=== PATIENT | female | born 1930 | race Caucasian/White ===

== ENCOUNTER 2018-03-25 12:58 | Outpatient (CLI) | payer MEDICARE ==
[2018-03-25 12:52] VITALS: BMI 23.1
[2018-03-25 13:50] LABS: #Lymphocytes 1.7 thou/uL (1.20-3.40); #Monocytes 0.6 thou/uL (0.11-0.59); #Neutrophils 3.8 thou/uL (1.40-6.50); %Basophils 0.2 % (0.0-1.0); %Eosinophils 0.8 % (0.0-10.0); %Lymphocytes 27.3 % (21.0-51.0); %Neutrophils 62.8 % (42.0-75.0); Hemoglobin 13.7 g/dL (12.0-16.0); Mean Corpuscular HGB CONC 33.5 g/dL (32.0-36.0); Mean Corpuscular Hemoglobin 31.2 pg (27.0-31.0); Mean Corpuscular Volume 93.1 fL (78.0-98.0); Mean Platelet Volume 6.7 fL (7.4-10.4); Platelet Count 208 thou/uL (130-400); Red Blood Cell (RBC) Count 4.39 mill/uL (4.20-5.40); White Blood Cell (WBC) Count 6.1 thou/uL (4.8-10.8)
[2018-03-25 14:10] LABS: Anion Gap 9 mmol/L (10-20); BUN (Urea Nitrogen) 17 mg/dL (9.8-20.1); Calc. Creatinine Clearance 54 mL/min (70-130); Calcium 9.5 mg/dL (7.8-10.44); Carbon Dioxide 29 mmol/L (23-31); Chloride 104 mmol/L (98-107); Estimated GFR-MDRD 68; Glucose 89 mg/dL (83-110); Potassium 4.2 mmol/L (3.5-5.1); Sodium 138 mmol/L (136-145)
--- NOTE | 2018-03-25 14:13 | RAD ---
TWO VIEW CHEST: History: Pre-operative evaluation. Comparison: 11-27-13 FINDINGS: The lung lozano are clear of infiltrate. Chronic appearing interstitial changes appear stable. Heart and mediastinum are unremarkable. Osseous structures unremarkable. Two focal sclerotic lesions in the right scapula are stable. IMPRESSION: No acute process or significant interval change. POS: [facility]
--- NOTE | 2018-03-25 17:21 | EKG ---
Test Reason : Blood Pressure : / mmHG Vent. Rate : 065 BPM Atrial Rate : 065 BPM P-R Int : 228 ms QRS Dur : 152 ms QT Int : 424 ms P-R-T Axes : 000 -17 -31 degrees QTc Int : 440 ms Sinus rhythm with 1st degree A-V block Left bundle branch block Abnormal ECG When compared with ECG of 16-APR-2015 13:08, T wave inversion now evident in Inferior leads Confirmed by DR. Gracia HOWE ([id number]) on 03/25/2018 5:21:40 PM Referred By: NANCY Confirmed By:DR. Gracia HOWE
== END 2018-03-25 12:59 | disposition home or self-care (01) ==
LOC: LABBT 12:58
PROVIDERS: ATTEND Orthopaedic Surgery Hand Surgery
DX: Z01.818 Encounter for other preprocedural examination (principal); M18.11 Unilateral primary osteoarthritis of first carpometacarpal joint, right hand
CPT/HCPCS: 71046; 80048; 85025; 93005; 93010

== ENCOUNTER 2018-04-05 05:40 | Observation (INO) | payer MEDICARE ==
[2018-04-05] MEDS ORDERED: Bupivacaine PF 0.5% 30 ML VIAL ONE (06:51)
[2018-04-05] MEDS ORDERED: Sodium Chloride 0.9% 10 ML ONE (06:51)
[2018-04-05] MEDS ORDERED: Bupivacaine 0.25% HCL 30 ML VIAL ONE (06:51)
[2018-04-05] MEDS ORDERED: Bacitracin Zinc Ointment 30 gm TUBE ONE (06:51)
[2018-04-05] MEDS ORDERED: Betamet Acet/Betamet Na Ph 30 MG/5 ML VIAL ONE (06:52)
[2018-04-05] MEDS ORDERED: Midazolam HCl 2 mg/2 ml Vial ONE (06:53)
[2018-04-05] MEDS ORDERED: Fentanyl 100 MCG/2 ML VIAL ONE ×3 (06:53→11:25)
[2018-04-05] MEDS ORDERED: CEFAZOLIN/Water 2 GM/20 ML SYRINGE ONE (07:29)
[2018-04-05] MEDS ORDERED: Ketorolac Tromethamine 30 MG/ML VIAL ONE (11:24)
[2018-04-05] MEDS ORDERED: traMADol HCl 50 MG TAB PO PRN (11:34)
[2018-04-05] MEDS ORDERED: Acetaminophen 650 MG in Premix Bag 1 BAG IVPB PRN (11:37)
[2018-04-05] MEDS ORDERED: Ondansetron HCl/PF 4 MG/2 ML Vial ONE (11:38)
[2018-04-05] MEDS ORDERED: Communication Order-Pharmacy FS SCH (11:45)
[2018-04-05] MEDS ORDERED: TETANUS AND DIPHTHERIA TOX/PF 0.5 ML DISP.SYRIN IM SCH (11:45)
[2018-04-05] MEDS ORDERED: Lidocaine 1% PF 5 ML VIAL ONE (12:34)
[2018-04-05] MEDS ORDERED: PROPOFOL 200 MG/20 ML VIAL ONE (12:34)
[2018-04-05 13:00] VITALS: BMI 23.1
[2018-04-05] MEDS ORDERED: Promethazine HCl 25 MG/ML VIAL IM PRN (13:48)
[2018-04-05] MEDS ORDERED: Promethazine HCl 25 MG/ML VIAL SLOW IVP PRN (13:48)
[2018-04-05] MEDS ORDERED: Ondansetron HCl/PF 4 MG/2 ML Vial IVP PRN (13:48)
[2018-04-05] MEDS: Acetaminophen/Codeine 30-300mg Tablet PO PRN ×2 (15:22→20:15)
--- NOTE | 2018-04-05 15:46 | RAD ---
THREE VIEW RIGHT WRIST SERIES FOUR FLUOROSCOPIC VIEWS INTRAOPERATIVE PERFORMED 04/05/18 INDICATION: Right wrist arthroplasty. Intraoperative imaging. FINDINGS: There are intraoperative fluoroscopic views of the right wrist which reveal extrinsic devices which d o limit visualization. There is K-wire traversing the first ray. There is prominent osteoarthritis of the first CMC joint region, limited in assessment. Details otherwise limited. IMPRESSION: Intraoperative imaging for right wrist arthroplasty. Correlate with intraoperative findings. POS: [facility]
[2018-04-05] MEDS: Ketorolac Tromethamine 30 MG/ML VIAL IVP SCH ×2 (17:11→23:54)
[2018-04-05] MEDS ORDERED: Vancomycin HCl 1 GM in Premix Bag 1 BAG IVPB SCH (20:00)
[2018-04-05] MEDS: Aspirin 81 mg Enteric Coated Tablet PO SCH (20:17)
[2018-04-06] MEDS: HYDROcodone/Acetaminophen 10/325 mg Tablet PO PRN ×2 (02:57→07:57)
[2018-04-06] MEDS: Ketorolac Tromethamine 30 MG/ML VIAL IVP SCH (05:43)
[2018-04-06] MEDS: Aspirin 81 mg Enteric Coated Tablet PO SCH (07:57)
[2018-04-06 10:19] VITALS: BP 116/58; TEMP 98.3
--- NOTE | 2018-04-13 12:19 | OP ---
DATE OF SURGERY: 04/05/2018 PREOPERATIVE DIAGNOSES: 1. Right thumb carpometacarpal joint osteoarthritis, severe stage 4. 2. Right volar capsular contracture capsule, right thumb metacarpophalangeal joint. FINDINGS: 1. Definite laxity of palmar plate metacarpophalangeal joint capsule, right thumb. 2. Severe carpometacarpal joint osteoarthritis stage 4, with 100% thumb carpometacarpal joint involv ement of osteoarthritic changes and osteophyte formation with collapse. PROCEDURES PERFORMED: 1. Right thumb metacarpophalangeal joint volar capsulodesis with pinning. 2. Right thumb carpometacarpal joint arthroplasty with ligament placing the tendon in position from the ipsilateral transfer of the flexor carpi radialis tendon. TOURNIQUET TIME: 80 minutes. ESTIMATED BLOOD LOSS: 20 mL. COMPLICATIONS: None. C-ARM USED: Yes. INDICATIONS: As listed above. DESCRIPTION OF PROCEDURE: After successful general LMA technique, the limb was prepped and draped. The patient had time out done appropriately. We then outlined a zigzag incision over the MP joint, p almar aspect and then one over the dorsal and renee skin junction at the CMC hockey stick volar appr [facility]. We first then performed the metacarpophalangeal joint approach carried through the skin and joshi bcutaneous tissue, identified the digital nerves and retracted from the midline. We then opened the A1 isidro, transferred and then we retracted the flexor pollicis longus tendon away from midline and then made shaped incision just proximal to the sesamoids. Here, we developed the capsule, and then u sing 4 heavy Prolene sutures each with two needles performed a reconstruction before we tied the sutu res, we pinned the joint in approximately 20 degrees of flexion or apex, dorsal angulation in the MP joint. C-arm confirmed the position with K-wire across the joint to be in excellent, we cut the wire below the skin and then tied the [id number] repair. We then closed the incision with running 4 -0 Monocryl and subcutaneous and 4-0 nylon in an interrupted mattress pattern for epidermal closure. Now reports primary carpometacarpal joint with a hockey stick incision at the junction of the dorsal and palmar skin centered on the CMC joint. Carried the incision through the skin and subcutaneous ti ssue until we had reached the radial nerve branches protected and then retracted from the centre of t he field. We then used a Irvona blade to separate the fascia to expose the carpometacarpal joints sp aring the abductor pollicis longus. This incision was then made through the capsule to expose the ca rpometacarpal joint. Capsule repaired with 2-0 Vicryl x2 with needles for later closure. We then sa w the complete loss of chondral surface with bone on bone at the carpometacarpal joint of this thumb. We then dissected the trapezium free, identified with a K wire incising the C-arm and saw tr apezium, then made an incision ulnarly to expose the flexor carpal radialis tendon as it entered into the wrist and once we released this and freed it from the side of the trapezium. Then, we performed a trapeziectomy protecting the flexor carpi radialis tendon at all time and lifted the trapezium com pletely out. Here, we also saw a complete chondral avulsion and bone on bone . We removed the osteophytes around the surface of the thumb metacarpal base include the webspace first and second. We then visualized the tendon, protected it, and rotate any thumb metacarpal into the p lilian of the table, made a drill hole first with a 2.5 drill bit 1 cm radial and then closed it ulnarl y towards the base of the metacarpal and exiting just at the bone cartilage junction. Osteophytes re moved, tunnels progressively widened using the first 3.5 drill bit, then some progressive and aggress parker gouges. Once this was done, curetted the edges to make sure the large curette could get inside, so we had adequate position and then now considered the second half of the procedure, which is harves ting. We made two longitudinal splits in each process 8 cm from each other complicated with skin and subcut aneous tissue with the most distal one. We first identified the muscle and once we saw it free and c lear on both sides, we made the second proximal incision and developed a musculotendinous junction. We released the flexor carpi radialis and harvest the entire tendon. We then brought in to the wrist . We trimmed all excess muscle, then performed a graft reduction technique, then this was done with 3-0 Monocryl. The patient then had the flexor carpi radialis tendon weaved through the tunnel with n o undue tension, freed up again for another possible pressure problems and then held it and pas sed it through the tunnel in the base of the thumb metacarpal standard fashion from the index finger out to the radial thumb. We then weaved this underneath the entire abductor pollicis longus and then made an anchovy from this spot using a weave of 3-0 nylon, replacing the base of joint capsule more superior than volar and this 3-0 was in placed using Geovanni needles and used to make the anchovy type roll. The roll was in place for deep into the canal as possible and then the Prolene suture was tied , we had excellent maintenance of position. The patient now had the tourniquet deflated. We had secured the graft once we placed the K wire unde r C-arm supervision, the first and second metacarpal at 4 spots to include: the fascia over the bone, extensor pollicis longus, on itself at the base of the thumb, and then to itself over the abductor. This gave excellent anchor position. There was no gross migration of the tendon whatsoever. Hemost asis was obtained, we closed this incision in multiple layers with a deep closure and there was no ev idence of complication whatsoever. Bulky splint thumb spica was applied.
== END 2018-04-06 10:23 | disposition home or self-care (01) ==
LOC: SDC 05:40 → SURG A 12:16
PROVIDERS: ADMIT Orthopaedic Surgery Hand Surgery; ATTEND Orthopaedic Surgery Hand Surgery
PROC: 0RGU04Z Fusion of Right Metacarpophalangeal Joint with Internal Fixation Device, Open Approach (ICD-10-PCS; principal; 2018-04-05)
PROC: 0LX70ZZ Transfer Right Hand Tendon, Open Approach (ICD-10-PCS; 2018-04-05)
PROC: 0RQS0ZZ Repair Right Carpometacarpal Joint, Open Approach (ICD-10-PCS; 2018-04-05)
DX: M18.11 Unilateral primary osteoarthritis of first carpometacarpal joint, right hand (principal); M24.541 Contracture, right hand; G56.21 Lesion of ulnar nerve, right upper limb; Z88.2 Allergy status to sulfonamides; Z88.1 Allergy status to other antibiotic agents; Z88.8 Allergy status to other drugs, medicaments and biological substances
CPT/HCPCS: 25447; 26480; 26516; 73110; 76001; 96374; 96375; 96376 ×2; G0378; A4216; J0702; J1885; J2001; J2250; J2270; J2405; J2704; J3010; J3370; J3490; S0020

== ENCOUNTER 2018-12-15 10:11 | Outpatient (CLI) | payer MEDICARE ==
--- NOTE | 2018-12-16 11:57 | MMO ---
Bilateral MAMMO Bilat Screen [facility]. CLINICAL HISTORY: Patient is 88 years old and is seen for screening. The patient has the following family history of breast cancer: sister, at age 38 and maternal grandmother. VIEWS: The views performed were: bilateral craniocaudal with tomosynthesis and bilateral mediolateral oblique with tomosynthesis. FILMS COMPARED: The present examination has been compared to prior imaging studies performed at [facility] on 06/19/2013, 10/18/2014 and 07/13/2016. MAMMOGRAM FINDINGS: There are scattered fibroglandular densities. Finding 1: There is a post-surgical scar seen in the right breast. Finding 2: There is a single stable calcification seen in the right breast. There are no suspicious masses, suspicious calcifications, or new areas of architectural distortion. IMPRESSION: THERE IS NO MAMMOGRAPHIC EVIDENCE OF MALIGNANCY. A ROUTINE FOLLOW-UP MAMMOGRAM IN 1 YEAR IS RECOMMENDED. THE RESULTS OF THIS EXAM WERE SENT TO THE PATIENT. ACR BI-RADS Category 2 - Benign finding MAMMOGRAPHY NOTE: 1. A negative mammogram report should not delay a biopsy if a dominant of clinically suspicious mass is present. 2. Approximately 10% to 15% of breast cancers are not detected by mammography. 3. Adenosis and dense breasts may obscure an underlying neoplasm.
== END 2018-12-15 10:12 | disposition home or self-care (01) ==
LOC: BICMAMMO 10:11
PROVIDERS: ATTEND Nurse Practitioner
DX: Z12.31 Encounter for screening mammogram for malignant neoplasm of breast (principal); Z80.3 Family history of malignant neoplasm of breast
CPT/HCPCS: 77063; 77067

== ENCOUNTER 2019-06-25 20:06 | Inpatient (IN) | payer MEDICARE ==
[~2019-06-25 20:06] MED LIST: Iopamidol 370 76% 100 ML VIAL ONE
[2019-06-25 20:35] LABS: #Eosinphils 0.1 thou/uL (0.0-0.7); #Lymphocytes 1.4 thou/uL (1.20-3.40); #Monocytes 1.1 thou/uL (0.11-0.59); %Eosinophils 0.4 % (0.0-10.0); %Lymphocytes 10.4 % (21.0-51.0); %Monocytes 7.9 % (0.0-10.0); %Neutrophils 81.3 % (42.0-75.0); Hemoglobin 14.3 g/dL (12.0-16.0); Mean Corpuscular HGB CONC 33.2 g/dL (32.0-36.0); Mean Corpuscular Hemoglobin 30.8 pg (27.0-31.0); Mean Corpuscular Volume 92.6 fL (78.0-98.0); Mean Platelet Volume 7.2 fL (7.4-10.4); Platelet Count 184 thou/uL (130-400); RBC Distribution Width 11.9 % (11.5-14.5); Red Blood Cell (RBC) Count 4.65 mill/uL (4.20-5.40); White Blood Cell (WBC) Count 13.5 thou/uL (4.8-10.8)
--- NOTE | 2019-06-25 20:42 | RAD ---
Portable chest: HISTORY: Chest pain COMPARISON: 03/25/2018 FINDINGS:Borderline cardiomegaly. Small right effusion. Mild vascular engorgement. Question infiltrat e or atelectasis in the right lung base. IMPRESSION:Right pleural effusion and evidence of infiltrate or atelectasis in the right lung base.
[2019-06-25] MEDS ORDERED: Nitroglycerin 0.4 MG TAB 1 EACH ONE (20:53)
[2019-06-25 20:55] LABS: ALT (SGPT) 10 U/L (8-55); AST (SGOT) 15 U/L (5-34); Albumin 4.2 g/dL (3.4-4.8); Alkaline Phosphatase 75 U/L (40-110); Anion Gap 13 mmol/L (10-20); BUN (Urea Nitrogen) 20 mg/dL (9.8-20.1); Bilirubin, Total 0.6 mg/dL (0.2-1.2); Calc. Creatinine Clearance 0 mL/min (70-130); Calcium 9.4 mg/dL (7.8-10.44); Carbon Dioxide 24 mmol/L (23-31); Chloride 104 mmol/L (98-107); Estimated GFR-MDRD 58; Globulin 2.9 g/dL (2.4-3.5); Glucose 110 mg/dL (83-110); Potassium 4.2 mmol/L (3.5-5.1); Protein, Total 7.1 g/dL (6.0-8.3); Sodium 137 mmol/L (136-145)
[2019-06-25 21:18] LABS: CKMB 1.1 ng/mL (0-6.6)
[2019-06-25] MEDS ORDERED: Morphine 2 MG/ML SYRINGE ONE ×2 (21:31→21:45)
[2019-06-25] MEDS ORDERED: Morphine 4 MG/ML VIAL ONE (21:32)
[2019-06-25] MEDS ORDERED: Ondansetron PF 4 MG/2 ML Vial ONE (21:35)
--- NOTE | 2019-06-25 23:03 | CT ---
CTA CHEST AND ABDOMEN FOLLOWING AORTIC PROTOCOL: History: Chest pain, assess for dissection. FINDINGS: Thoracic aorta shows mild atherosclerotic change. No dissection or aneurysm. There is focal stenosis just beyond the origin of the superior mesenteric artery. Renal arteries appear unremarkable. Aortic bifurcation is unremarkable. The lungs show a moderate sized right pleural effusion and right basilar atelectasis. Patchy infiltra te or atelectasis in the right upper lobe. Liver, spleen, and pancreas unremarkable. Kidneys unremarkable. Bowel loops unremarkable as visualize d. No acute osseous abnormality. IMPRESSION: 1. No evidence of thoracic or abdominal aortic dissection. 2. Right pleural effusion and right basilar atelectasis with patchy atelectasis or infiltrate in the right upper lobe. 3. Unremarkable soft tissues of the abdomen. POS: OFF
[2019-06-25] MEDS ORDERED: Aspirin Chewable 81 MG TAB ONE (23:58)
[2019-06-25] MEDS ORDERED: Nitroglycerin 2% Ointment 1 INCH/1 GM Packet ONE (23:58)
[2019-06-26 00:48] LABS: Troponin I 0.025 ng/mL (< 0.028)
[2019-06-26] MEDS ORDERED: Ondansetron ODT 4 MG TAB SL PRN (01:13)
[2019-06-26] MEDS ORDERED: Ondansetron PF 4 MG/2 ML Vial IVP PRN ×2 (01:13→19:05)
[2019-06-26] MEDS ORDERED: HYDROcodone/Acetaminophen 5/325 mg Tablet PO PRN ×3 (01:13→17:11)
[2019-06-26] MEDS ORDERED: Acetaminophen 325 MG TAB PO PRN ×2 (01:13→19:05)
[2019-06-26] MEDS ORDERED: Sodium Chloride 0.9% 1,000 ML IV SCH (01:13)
[2019-06-26 02:05] VITALS: BMI 23.7
[2019-06-26 03:27] LABS: Troponin I 0.016 ng/mL (< 0.028)
[2019-06-26] MEDS ORDERED: Furosemide 40 MG/4 ML VIAL SLOW IVP SCH (05:45)
[2019-06-26] MEDS ORDERED: Cephalexin 250 MG CAP PO SCH ×2 (15:45→21:00)
[2019-06-26] MEDS: Cefepime 2 GM in Sodium Chloride 0.9% 100 ML IVPB SCH (17:32)
[2019-06-26] MEDS: Pramipexole Di-HCl 0.25 MG TAB PO SCH (17:32)
[2019-06-26 18:09] LABS: ALT (SGPT) 9 U/L (8-55); AST (SGOT) 11 U/L (5-34); Albumin 3.5 g/dL (3.4-4.8); Alkaline Phosphatase 62 U/L (40-110); Anion Gap 10 mmol/L (10-20); BUN (Urea Nitrogen) 18 mg/dL (9.8-20.1); Bilirubin, Total 1.1 mg/dL (0.2-1.2); Calc. Creatinine Clearance 56 mL/min (70-130); Calcium 8.6 mg/dL (7.8-10.44); Carbon Dioxide 26 mmol/L (23-31); Chloride 105 mmol/L (98-107); Estimated GFR-MDRD 71; Globulin 2.6 g/dL (2.4-3.5); Glucose 106 mg/dL (83-110); Magnesium 1.8 mg/dL (1.6-2.6); Potassium 3.9 mmol/L (3.5-5.1); Protein, Total 6.1 g/dL (6.0-8.3); Sodium 137 mmol/L (136-145)
[2019-06-26 18:22] LABS: #Eosinphils 0.1 thou/uL (0.0-0.7); #Lymphocytes 1.2 thou/uL (1.20-3.40); #Neutrophils 7.3 thou/uL (1.40-6.50); %Basophils 0.5 % (0.0-1.0); %Eosinophils 0.8 % (0.0-10.0); %Lymphocytes 12.3 % (21.0-51.0); %Neutrophils 76.4 % (42.0-75.0); Mean Corpuscular HGB CONC 32.7 g/dL (32.0-36.0); Mean Corpuscular Hemoglobin 30.8 pg (27.0-31.0); Mean Corpuscular Volume 94.2 fL (78.0-98.0); Mean Platelet Volume 7.5 fL (7.4-10.4); Platelet Count 160 thou/uL (130-400); White Blood Cell (WBC) Count 9.5 thou/uL (4.8-10.8)
[2019-06-26] MEDS ORDERED: Calcium Carbonate 500 MG ChewTAB PO PRN (19:05)
[2019-06-26] MEDS ORDERED: Senokot S 8.6-50 MG TAB PO PRN (19:05)
[2019-06-26] MEDS ORDERED: Ondansetron ODT 4 MG TAB PO PRN (19:05)
[2019-06-26] MEDS ORDERED: diphenhydrAMINE 25 MG CAP PO PRN (19:20)
--- NOTE | 2019-06-26 20:07 | HP ---
PRIMARY CARE PHYSICIAN: rAaceli De Dios NP PRIMARY CIRCUS HAND: Dr. Gonzales. CHIEF COMPLAINT: Chest discomfort. HISTORY OF PRESENT ILLNESS: The patient is an 89-year-old female with chronic systolic heart failure ejection fraction 30% to 35%, who recently underwent AICD , presented to the emergency room with chest discomfort along with palpitations that started over this weekend. The chest discomfort was precordial, radiating to the back and bilateral shoulders. It felt like tightness without any relieving factor. The pain was worse on deep breathing. She denies any discomfort over the pacemaker site. No fever or chills reported. She denies any syncope, lightheadedness, or diaphoresis. She has chronic cough which has not changed. No recent immobilization or travel reported. In the emergency room, her initial vital signs showed temperature 98, pulse rate of 117, respirations of 17 with a blood pressure of 120/74 with O2 saturation 100% on room air. She received aspirin with morphine and sublingual nitroglycerin. Her blood pressure dropped with nitroglycerin to 66/47, which improved with IV fluids. She underwent a CT scan of the chest that showed questionable right upper lobe infiltrate with right-sided pleural effusion. PAST MEDICAL HISTORY: 1. Chronic systolic heart failure status post AICD three days ago. 2. Chronic left bundle-branch block. 3. Restless legs syndrome. 4. Degenerative joint disease. PAST SURGICAL HISTORY: 1. AICD placement. 2. Cataract surgery. 3. Bilateral herniorrhaphy. 4. Hysterectomy. 5. Cholecystectomy. ALLERGIES: SULFA. CODE STATUS: Full code. Makes her own decision with the help of her family. FAMILY HISTORY: Mother of colon cancer. Father of prostate cancer. One sister with coronary artery disease. SOCIAL HISTORY: The patient currently lives at home. . Denies significant use of alcohol. No tobacco or drug use. CURRENT HOME MEDICATIONS: 1. Ibuprofen as needed. 2. Keflex 250 mg every 8 hourly. 3. Calcium with vitamin D daily. 4. Benadryl 50 mg at bedtime. 5. Nexium 20 mg daily. 6. Lisinopril 1.25 mg daily. 7. Magnesium 400 mg daily. 8. Toprol-XL 12.5 mg daily. 9. Mirapex 0.25 mg at 8:00 p.m. 10. Trazodone 50 mg at bedtime. 11. Vitamin E 400 units daily. REVIEW OF SYSTEMS: All other review of systems was reviewed and was found negative. PHYSICAL EXAMINATION: VITAL SIGNS: As discussed above. However, her last vital signs showed temperature 100.4 with pulse rate of 99, respirations of 14, blood pressure 115/52. GENERAL: An 89-year-old female in no apparent distress. HEENT: Head, atraumatic and normocephalic. Sclerae anicteric. Moist mucous membranes. No oral lesion. NECK: Supple. No JVD appreciated. No carotid bruit. LUNGS: Clear to auscultation bilaterally except for diminished air entry at right base. There was some scattered right-sided rhonchi as well. HEART: S1 and S2 present, tachycardic. No rubs or gallops. AICD site with minimal swelling. No significant tenderness. ABDOMEN: Soft, nontender. Bowel sounds present. EXTREMITIES: No edema or calf tenderness. NEUROLOGIC: Grossly nonfocal. Moves all 4 extremities. PSYCHIATRY: Alert, awake, oriented x3. SKIN: Warm and dry. LYMPH NODES: No palpable lymph nodes in the neck. PERIPHERAL VASCULAR: Radial pulses palpable bilaterally. MUSCULOSKELETAL: No joint swelling or tenderness. LABORATORY FINDINGS: WBC 13.5 with hemoglobin 14.3, hematocrit 43, platelet count 184. Chemistry showed sodium 137, potassium 3.9, chloride 105, bicarb 26, BUN 18, creatinine 0.77. Initial troponin was 0.036, repeat troponin was 0.025. BNP was 549. IMAGING STUDIES: Chest x-ray by my review showed possible right-sided infiltrate. CT dissection protocol showed right-sided effusion with right upper lobe infiltrate. EKG by my review showed atrial fibrillation with rapid ventricular response. IMPRESSION: 1. Chest discomfort with palpitations, rule out acute coronary syndrome. 2. Elevated troponins, probably secondary to type 2 myocardial infarction. 3. Sepsis secondary to pneumonia, suspected pneumococcal. 4. Chronic kidney disease, stage 2. 5. Chronic systolic heart failure, status post recent automatic implantable cardioverter-defibrillator. 6. Chronic left bundle-branch block. 7. Tachyarrhythmia, suspected to be atrial fibrillation. 8. Restless legs syndrome. 9. Degenerative joint disease. 10. Gastroesophageal reflux disease. 11. Sulfa allergy. PLAN: The patient will be monitored on the telemetry unit. We will get blood cultures. We will start her on empiric antibiotics for pneumonia. Cardiology will be consulted. Echocardiogram will be obtained. Anticoagulation for suspected atrial fibrillation per Cardiology. We will also get a soft tissue [facility]. We will recheck labs in a.m. Repeat LFTs in a.m. AICD check. Plan of care was discussed with the patient in detail. She stated understanding. Job ID: [id number] [facility]
[2019-06-26 20:32] LABS: Bacteria/HPF None Seen HPF (None Seen); Bilirubin Negative (Negative); Blood, Urine Negative (Negative); Clarity Clear (Clear); Glucose, Urine (Dipstick) Normal (Negative); Leukocyte Negative Leu/uL (Negative); Nitrite Negative (Negative); Protein, Urine (Dipstick) Negative (Neg-Trace); RBC/HPF 0-3 HPF (0-3); Squamous Epithelial None Seen HPF (0-3); Urobilinogen Normal mg/dL (Less than 2); WBC/HPF 0-3 HPF (0-3)
[2019-06-26] MEDS ORDERED: FLU VACC TS2019-20(65YR UP)/PF 180 MCG/0.5 ML SYRINGE IM ONE (21:00)
[2019-06-26] MEDS: traZODone HCl 50 MG TAB PO SCH (21:07)
[2019-06-26] MEDS: Doxycycline 100 MG CAP PO SCH (21:07)
[2019-06-26] MEDS: Amiodarone 200 MG TAB PO SCH (21:07)
[2019-06-26] MEDS: Apixaban 5 MG TAB PO SCH (21:07)
--- NOTE | 2019-06-27 00:48 | CON ---
DATE OF CONSULTATION: HISTORY OF PRESENT ILLNESS: Ramiro Andersen is an 89-year-old white female, who is followed by Dr. Gonzales. She did undergo cardiac catheterization. She was seen by Dr. Espinoza in February 2015. This revealed an ejection fraction of 55% to 60% and 20% left main stenosis. She has left bundle-branch block and on evaluation of this in December 2018, underwent cardiac PET scan, which revealed no evidence of reversible ischemia. Her ejection fraction had been followed, then in April 2019, been found to have dropped to 30% to 35%. She denied any chest discomfort or shortness of breath. She was referred to Dr. Smith, and on June 23 underwent placement of a biventricular ICD. She did well until yesterday morning, June 25, when she woke at approximately 7:00 a.m. She states that she was having tightness across the entire part of her chest and the discomfort was not pleuritic in nature. She notes that her heart was beating rapidly. She gradually felt better during the day, but decided to come to the emergency room at approximately 8:00 p.m. in the evening when she continued to have this chest tightness. She denied any fever or chills. She did have a cough, but states that she always has a chronic cough. She was found to be in atrial fibrillation with fast ventricular response-111 per minute, which is a new finding for her. In the emergency room, she was given sublingual nitroglycerin 0.4 mg, Zofran 4 mg IV, saline infusion, morphine 2 mg IV x2, aspirin 324 and nitroglycerin paste 0.5 mg topically. Her discomfort improved. She has since converted back to normal sinus rhythm. PAST MEDICAL HISTORY: Left bundle branch block, mitral regurgitation, new atrial fibrillation. PAST SURGICAL HISTORY: Biventricular ICD placement, right knee replacement, cholecystectomy, hysterectomy, right carpal tunnel surgery, hernia repair. MEDICATIONS: 1. Lisinopril 2.5 mg daily. 2. Metoprolol 25 mg XL daily. 3. Trazodone 50 at bedtime. 4. Calcium plus vitamin D. 5. Vitamin D. 6. Magnesium 200 mg b.i.d. 7. Pramipexole 0.25 daily. 8. Nexium 20 mg daily. ALLERGIES: SULFA AND ALEVE. SOCIAL HISTORY: She does not smoke. She does drink alcohol daily. REVIEW OF SYSTEMS: Otherwise unremarkable. PHYSICAL EXAMINATION: VITAL SIGNS: As of note, that in the emergency room after nitroglycerin and morphine, her blood pressure dropped to 66/47. Blood pressure now 115/52, pulse of 99. HEENT: PERRL. NECK: Supple. CHEST: Reveals occasional crackles with right base. CARDIOVASCULAR: S1 and S2 are normal without any S3, S4, or murmurs. ABDOMEN: Normal bowel sounds without tenderness, or organomegaly. EXTREMITIES: Revealed no clubbing, cyanosis, or edema. NEUROLOGICAL: Grossly intact. SKIN: Skin overlying her recently placed ICD is without warmth or erythema. There is ecchymotic area overlying this. IMAGING STUDIES: EKG on admission revealed atrial fibrillation with a rate of 111 per minute, left axis deviation and left bundle-branch block. On interrogation of her ICD, atrial fibrillation is 24% since her device was inserted 3 days ago. Chest x-ray revealed a right pleural effusion and evidence of possible infiltrate. CT dissection protocol revealed no evidence of thoracic or abdominal aortic dissection. There was a right pleural effusion and right basilar atelectasis. LABORATORY DATA: Hemoglobin 12.0, hematocrit 36.7, white count 9,500, platelets 160,000. Sodium 137, potassium 3.9, chloride 105, carbon dioxide 26, BUN 18, creatinine 0.77. Troponin I 0.036. BNP 549.7. Echocardiogram revealed ejection fraction 50% to 55%, defibrillator wire seen on the right side of the heart, mild mitral regurgitation and [id number] tricuspid regurgitation. IMPRESSION: 1. Probable right lung pneumonia, antibiotics started. 2. I doubt that if she has had any significant myocardial infarction with 13 to 14 hours of continual pain and very minimally elevated troponin I. This certainly may be related to her atrial fibrillation with fast ventricular response or due to her pneumonitis. 3. Status post biventricular ICD placement 3 days ago. 4. Chronic left bundle-branch block. 5. Worsening left ventricular function with ejection fraction of 30% to 35% prior to biventricular ICD placement. However, today her ejection fraction after she has converted back to sinus rhythm and with biventricular pacing is 50% to 55%. 6. Atrial fibrillation, which apparently spontaneously converted to sinus rhythm. Since her defibrillator has been placed, she has been in atrial fibrillation 24 % of the time. 7. 20% left main coronary artery disease. PLAN: Mrs. Andersen's CHADS-VASc score is greater than 2 and I would recommend that she be placed on chronic anticoagulation. Also, she will be loaded with amiodarone in the hopes of further suppression of her atrial fibrillation. At this time, it is unknown how often she really has atrial fibrillation, or if this is related to presumed right lung pneumonia. I doubt that she has an infection in her defibrillator site. Job ID: [id number] [facility]
[2019-06-27] MEDS: Cefepime 2 GM in Sodium Chloride 0.9% 100 ML IVPB SCH ×2 (06:13→16:55)
[2019-06-27 06:36] LABS: #Eosinphils 0.1 thou/uL (0.0-0.7); #Lymphocytes 0.9 thou/uL (1.20-3.40); #Monocytes 0.7 thou/uL (0.11-0.59); %Basophils 0.3 % (0.0-1.0); %Eosinophils 1.8 % (0.0-10.0); %Lymphocytes 11.8 % (21.0-51.0); %Monocytes 8.8 % (0.0-10.0); %Neutrophils 77.3 % (42.0-75.0); Mean Corpuscular Volume 94.1 fL (78.0-98.0); Mean Platelet Volume 7.1 fL (7.4-10.4); Platelet Count 132 thou/uL (130-400); RBC Distribution Width 11.8 % (11.5-14.5); Red Blood Cell (RBC) Count 3.55 mill/uL (4.20-5.40); White Blood Cell (WBC) Count 7.8 thou/uL (4.8-10.8)
[2019-06-27 06:59] LABS: ALT (SGPT) 9 U/L (8-55); AST (SGOT) 11 U/L (5-34); Albumin 3.3 g/dL (3.4-4.8); Alkaline Phosphatase 63 U/L (40-110); Anion Gap 11 mmol/L (10-20); BUN (Urea Nitrogen) 16 mg/dL (9.8-20.1); Bilirubin, Total 1.1 mg/dL (0.2-1.2); Calc. Creatinine Clearance 55 mL/min (70-130); Calcium 8.7 mg/dL (7.8-10.44); Carbon Dioxide 26 mmol/L (23-31); Chloride 104 mmol/L (98-107); Estimated GFR-MDRD 71; Globulin 2.6 g/dL (2.4-3.5); Glucose 92 mg/dL (83-110); Lipase 16 U/L (8-78); Potassium 3.9 mmol/L (3.5-5.1); Protein, Total 5.9 g/dL (6.0-8.3); Sodium 137 mmol/L (136-145)
--- NOTE | 2019-06-27 08:14 | ULT ---
Sonogram right upper quadrant HISTORY: Elevated bilirubin. Fever. FINDINGS: Gallbladder is surgically absent. Common duct measures up to 1.0 cm without internal echoes . Liver has normal appearance. No free fluid. Right pleural fluid partially visualized. IMPRESSION: Status post cholecystectomy. No evidence of acute biliary obstruction. Right pleural fluid.
--- NOTE | 2019-06-27 08:53 | ULT ---
Soft tissue sonogram left upper chest HISTORY: Fever and swelling around insertion site of pacemaker Findings: Echogenicity of the left upper anterior chest wall is consistent with the recently implante d pacemaker device. No adjacent fluid or nearby fluid pockets. IMPRESSION: No abnormalities are demonstrated. No fluid around the left upper chest pacemaker radha gao
[2019-06-27] MEDS ORDERED: Lisinopril 2.5 MG TAB PO SCH (09:00)
[2019-06-27] MEDS: Doxycycline 100 MG CAP PO SCH ×2 (09:28→19:34)
[2019-06-27] MEDS: Apixaban 5 MG TAB PO SCH ×2 (09:28→19:34)
[2019-06-27] MEDS: Amiodarone 200 MG TAB PO SCH ×2 (09:28→19:35)
[2019-06-27] MEDS: Pramipexole Di-HCl 0.25 MG TAB PO SCH (17:33)
[2019-06-27] MEDS: traZODone HCl 50 MG TAB PO SCH (19:35)
--- NOTE | 2019-06-27 23:18 | PDOC.HOSPP ---
- Subjective Encounter Date: 06/27/19 Encounter Time: 09:30 Subjective: Patient seen and examined for CP/Sepsis. Dry cough. Feels better. No CP today. No other complaints. No overnight events - Objective Vital Signs & Weight: Vital Signs (12 hours) Temp Pulse Resp BP Pulse Ox 06/27/19 19:40 98.4 F 80 16 124/58 L 93 L 06/27/19 19:18 96 06/27/19 15:48 98.3 F 77 20 125/60 96 06/27/19 11:32 98.7 F 80 20 115/57 L 94 L Weight Weight 148 lb 12.8 oz I&O: 06/26/19 06/27/19 06/28/19 06:59 06:59 06:59 Intake Total 820 820 Output Total 300 2200 200 Balance -300 -1380 620 Result Diagrams: 06/27/19 06:24 06/27/19 06:24 EKG Reviewed by me: Yes (Tele Paced) Hospitalist ROS - Review of Systems Respiratory: reports: cough, dry. denies: shortness of breath, hemoptysis, SOB with excertion, pleuritic pain, sputum, wheezing, other Cardiovascular: denies: chest pain, palpitations, orthopnea, paroxysmal noc. dyspnea, edema, light headedness, other - Medication Medications: Active Medications Generic Name Dose Route Start Last Admin Trade Name Freq PRN Reason Stop Dose Admin Hydrocodone Bitart/Acetaminophen 1 tab 06/26/19 17:11 06/26/19 21:06 [place] 5/325 PO 1 tab Q6H PRN Administration Moderate Pain (4-6) Amiodarone HCl 400 mg 06/26/19 21:00 06/27/19 19:35 Cordarone PO 400 mg BID BLANCHE Administration Apixaban 5 mg 06/26/19 21:00 06/27/19 19:34 Eliquis PO 5 mg BID BLANCHE Administration Diphenhydramine HCl 25 mg 06/26/19 19:20 06/27/19 19:35 Benadryl PO 25 mg HS PRN Administration Insomnia Doxycycline Hyclate 100 mg 06/26/19 21:00 06/27/19 19:34 Vibramycin PO 100 mg BID BLANCHE Administration Cefepime HCl 2 gm/ Sodium 100 mls @ 200 mls/hr 06/26/19 17:00 06/27/19 16:55 Chloride IVPB 100 mls 0500,1700 BLANCHE Administration Lisinopril 1.25 mg 06/27/19 09:00 06/27/19 09:28 Zestril PO 1.25 mg QAM BLANCHE Administration Metoprolol Succinate 12.5 mg 06/27/19 09:00 06/27/19 09:29 Toprol Xl PO 12.5 mg DAILY BLANCHE Administration Pramipexole Dihydrochloride 0.25 mg 06/26/19 18:00 06/27/19 17:33 Mirapex PO 0.25 mg 1800 BLANCHE Administration Sodium Chloride 10 ml 06/26/19 19:05 06/27/19 06:11 Flush - Normal Saline IVF 10 ml PRN PRN Administration Saline Flush Trazodone HCl 50 mg 06/26/19 21:00 06/27/19 19:35 Desyrel PO 50 mg HS BLANCHE Administration - Exam General Appearance: NAD Neck: supple, no JVD Heart: RRR, no gallops Respiratory: CTAB, rales, rhonchi Gastrointestinal: soft, non-distended, normal bowel sounds Extremities: no edema Hosp A/P - Plan DVT proph w/SCDs IMPRESSION: 1. Chest discomfort/Palpitations - ACS ruled out 2. Elevated troponins, probably secondary to type 2 myocardial infarction. 3. Sepsis secondary to pneumonia, suspected pneumococcal. 4. Paroxysmal atrial fibrillation. 5. Chronic systolic heart failure, status post recent AICD. 6. Chronic left bundle-branch block. 7. Chronic kidney disease, stage 2. 8. Restless legs syndrome. 9. Degenerative joint disease. 10. Gastroesophageal reflux disease. 11. Sulfa allergy. PLAN: RUQ and AICD ultrasound ok Cont Cefepime and Doxy Eliquis started - Patient understands the risk associated with anticoagulation Amiodarone started Cont ACEI/BB PT/OT
[2019-06-28] MEDS: Cefepime 2 GM in Sodium Chloride 0.9% 100 ML IVPB SCH (04:13)
[2019-06-28 05:32] LABS: Platelet Count 169 thou/uL (130-400)
[2019-06-28 08:22] VITALS: TEMP 98.4
[2019-06-28] MEDS ORDERED: Losartan 25 MG TAB PO SCH (09:00)
[2019-06-28] MEDS: Doxycycline 100 MG CAP PO SCH (09:49)
[2019-06-28] MEDS: Apixaban 5 MG TAB PO SCH (09:49)
[2019-06-28] MEDS: Amiodarone 200 MG TAB PO SCH (09:49)
[2019-06-28 12:24] VITALS: BP 128/60
--- NOTE | 2019-06-28 19:43 | DIS ---
DATE OF ADMISSION: 06/27/2019 DATE OF DISCHARGE: 06/28/2019 DISCHARGE DISPOSITION: Home. FOLLOWUP: 1. Follow up with primary care physician, Araceli De Dios in 1 week. 2. Follow up with Dr. Orlin Gonzales in 2 to 3 weeks. The patient was seen on the day of discharge. Denies any new complaints. No chest pain, shortness of breath, or palpitations reported. BRIEF HOSPITAL COURSE: The patient is an 89-year-old female with chronic systolic heart failure, ejection fraction 30% to 35% with recent AICD, presented to the hospital with chest discomfort along with palpitations. Please refer to the history and physical for further details. The patient was admitted to the hospital with a diagnosis of chest discomfort, rule out acute coronary syndrome. An AICD interrogation was consistent with paroxysmal atrial fibrillation. The patient was evaluated by Cardiology, Dr. Rothman. She was started on amiodarone along with Eliquis. She understands the risk associated with Eliquis. She also had fever up to 100.4 degrees in the first 24 hours of admission. A chest x-ray was suspicious for pneumonia. She also had WBC count of 13.5 on admission. She was started on cefepime along with doxycycline. She has been cleared by Cardiology for discharge. DIAGNOSTIC TESTS: 1. Echocardiogram showed ejection fraction 50% to 55% with mild mitral regurgitation, [id number] tricuspid regurgitation. 2. Right upper quadrant ultrasound was negative. 3. Ultrasound of the AICD site was negative for edema. 4. CT dissection protocol was negative except for right-sided pleural effusion with right basilar atelectasis and patchy infiltrate in the right upper lobe. IMPRESSION: 1. Chest discomfort/palpitations on admission. 2. Paroxysmal atrial fibrillation, started on anticoagulation and amiodarone. 3. Elevated troponin secondary to type 2 myocardial infarction. 4. Sepsis secondary to pneumonia, suspected pneumococcal. 5. Chronic systolic heart failure, status post recent automatic implantable cardioverter-defibrillator. 6. Chronic left bundle-branch block. 7. Chronic kidney disease, stage 2. 8. Restless legs syndrome. 9. Degenerative joint disease. 10. Gastroesophageal reflux disease. 11. Sulfa allergy. Plan was discussed with the patient in detail. She stated understanding. Job ID: [id number]
== END 2019-06-28 15:24 | disposition home or self-care (01) | DRG 871 ==
LOC: ERS 20:06 → 2SW 06-26 00:57 → OBSVTOIN 06-27 12:00
PROVIDERS: ADMIT Hospitalist; ATTEND Hospitalist
PROC: 3E02340 Introduction of Influenza Vaccine into Muscle, Percutaneous Approach (ICD-10-PCS; principal; 2019-06-26)
PROC: 4B02XTZ Measurement of Cardiac Defibrillator, External Approach (ICD-10-PCS; 2019-06-27)
DX: A41.9 Sepsis, unspecified organism (principal); J13 Pneumonia due to Streptococcus pneumoniae; I21.A1 Myocardial infarction type 2; I50.22 Chronic systolic (congestive) heart failure; I44.7 Left bundle-branch block, unspecified; G25.81 Restless legs syndrome; Z96.651 Presence of right artificial knee joint; M19.90 Unspecified osteoarthritis, unspecified site; I48.0 Paroxysmal atrial fibrillation; N18.2 Chronic kidney disease, stage 2 (mild); K21.9 Gastro-esophageal reflux disease without esophagitis; Z95.810 Presence of automatic (implantable) cardiac defibrillator; Z90.49 Acquired absence of other specified parts of digestive tract; Z90.710 Acquired absence of both cervix and uterus; Z88.2 Allergy status to sulfonamides; Z79.899 Other long term (current) drug therapy; Z88.1 Allergy status to other antibiotic agents; Z88.8 Allergy status to other drugs, medicaments and biological substances; Z23 Encounter for immunization; I08.1 Rheumatic disorders of both mitral and tricuspid valves
CPT/HCPCS: 36415; 71045; 71275; 72191; 74175; 76705; 80053; 81001; 82553; 82565; 83690; 83735; 83880; 84484; 85014; 85018; 85025; 85049; 87040; 90471; 90662; 93005; 93306; 94760; 96361; 96374; 96375; G0008; J0692; J1940; J2270; J2405; J3490; Q0163; Q9967